=== PATIENT | female | born 1990 ===

== ENCOUNTER 2018-07-12 20:47 | Inpatient (IN) | payer BC ==
[2018-07-12 21:09] VITALS: BMI 33.3
[2018-07-12] MEDS ORDERED: Lactated Ringer's 1,000 ML IV ONE (21:33)
[2018-07-12] MEDS ORDERED: Lactated Ringer's 1,000 ML IV SCH (21:45)
--- NOTE | 2018-07-12 21:51 | OBADHP ---
Datetime: 07/12/2018 21:32 Admit Comment, IP Provider: borderline blood pressure, intermittent borderline fluid, elective IOL w ith cervidil Pelvic Type - PN: Adequate Extremities - PN: Normal Abdomen - PN: Normal Back - PN: Normal Breast - PN: Not Done Lungs - PN: Normal Heart - PN: Normal Thyroid - PN: Not Done Neurologic - PN: Normal HEENT - PN: Normal General - PN: Normal FHR - Baseline A Provider: 140 Contraction Comments Provider: irregular Comments, ACOG Physical Exam: Abdomen: Gravid. Soft. Non tender in all quadrants. [place]; height 39 c m Gestation - Est Wks by US: 39w 4d Pool Provider: Negative IP Hx Assessment: The History has been Reviewed and is Current Vital Signs Provider: Reviewed; Within Normal Limits IP Chief Complaint: Signs/Symptoms Gestational HTN NICHD Variability Prov Fetus A: Moderate 6-25bpm NICHD Accel Fetus A IP Provider: 15X15 FHR Category Provider Fetus A: Category I NICHD Decel Fetus A IP Provider: None Dilatation, Provider: 0 Effacement, Provider: 30 Station, Provider: -2 Genitourinary Exam: Normal DTRs - PN: Normal EGA AdmitDate IP: 39.4 IP Adm Impression: Term, intrauterine ; No Active Labor IP Admit Plan: Admit to unit; Initiate labor induction protocol
[2018-07-12 21:55] LABS: BASO # 0.1 K/uL (0.0-0.2); BASO % 0.8 % (0.0-2.0); EOS # 0.1 K/uL (0.0-0.7); HEMOGLOBIN 11.3 g/dL (11.0-16.0); LYMPH # 1.8 K/uL (1.0-4.3); LYMPH % 17.8 % (20.0-40.0); MEAN CELL VOLUME 81.2 fL (81.0-99.0); MEAN CORPUSCULAR HEMOGLOBIN 25.1 pg (27.0-31.0); MEAN CORPUSCULAR HGB CONC 30.9 g/dL (33.0-37.0); MEAN PLATELET VOLUME 8.8 fL (7.2-11.7); MONO # 0.7 K/uL (0.0-0.8); NEUT # 7.4 K/uL (1.8-7.0); NEUT % 73.4 % (50.0-75.0); RBC 4.52 Mil/uL (3.80-5.20); RED CELL DISTRIBUTION WIDTH 16.2 % (11.5-14.5); WHITE BLOOD COUNT 10.1 K/uL (4.8-10.8)
[2018-07-12 22:11] LABS: SQUAMOUS EPITHIAL 3 /hpf (0-5); URINE BACTERIA FEW (<OCC); URINE BILIRUBIN NEGATIVE (NEGATIVE); URINE BLOOD NEGATIVE (NEGATIVE); URINE CALCIUM OXALATE CRYSTALS RARE /hpf (<OCC); URINE CLARITY Hazy (Clear); URINE COLOR Yellow (YELLOW); URINE GLUCOSE (UA) NORMAL (Normal); URINE LEUKOCYTE ESTERASE NEG Leu/uL (Negative); URINE PROTEIN 1+ mg/dL (NEGATIVE)
[2018-07-12 22:12] LABS: ALB/GLOB RATIO 1.2 (1.0-2.1); ALBUMIN 4.3 g/dL (3.5-5.0); ALT/SGPT 12 U/L (9-52); AST/SGOT 34 U/L (14-36); BLOOD UREA NITROGEN 9 mg/dL (7-17); CALCIUM 9.7 mg/dl (8.6-10.4); GFR NON-AFRICAN AMERICAN > 60
--- NOTE | 2018-07-12 22:16 | OBHP ---
Datetime: 07/12/2018 21:32 IP Adm Impression: Term, intrauterine ; No Active Labor IP Admit Plan: Admit to unit; Initiate labor induction protocol Admit Comment, IP Provider: This is a private patient of Dr. Schroeder 28 y.o. , LMP 10/14/17, revised GILMA 07/15/18, EGA 39w 4d by sono 12/29/17 at 12w 4d for IOL secon sherin to gestational HTN. Denies headaches, spots, blurred vision, epigastric or RUQ pain. (+) AFM; de nies LOF, VB, Ctx. care: Dr. Schroeder; denies any issues to date except elevated BP readings P Ob: Primip P THERAPY DIRECTOR: 10 x monthly x 5. (+) HPV with abnormal Pap, 2018 - S/P colposcopy with negative results. (+) chlamydia, 2018. Denies myoma or ovarian cysts PMH: denies PSH: denies NKDA Meds: PNV Soc Hx: denies tobacco, illicit drug or EtOH use. Lives with FOB; together x 1 year. Employed - [employer]. Fam Hx; Mother laive 58 - thyroid disorder. Father alive 68 - DM. No known fam h/o cancer Assessment: 28 y.o. P0, 39w 4d, gestaional HTN for IOL D/W/ patient - cervical ripening; possible pitocin; as well as pain medication options, ubaldo epidural. Category 1 tracing. Patient is clinically stable. Plan: 1) Admit 2) NPO 3) IVFs 4) Admission and pre-eclamptic labs 5) Continuous EFM 6) Cervidil 7) Anticipate vaginal delivery - as per Dr. Schroeder Addendum: 2208 hours - cervidil placed in posterior vaginal vault at 2200 hours Pelvic Type - PN: Adequate Extremities - PN: Normal Abdomen - PN: Normal Back - PN: Normal Breast - PN: Not Done Lungs - PN: Normal Heart - PN: Normal Thyroid - PN: Not Done Neurologic - PN: Normal HEENT - PN: Normal General - PN: Normal Weight - Estimated: 7 1/2 lb Presentation-Admit: Vertex FHR - Baseline A Provider: 140 Contraction Comments Provider: irregular Comments, ACOG Physical Exam: Abdomen: Gravid. Soft. Non tender in all quadrants. Fundal height 39 c m All other systems reviewed and are negative Gestation - Est Wks by US: 39w 4d Pool Provider: Negative IP Hx Assessment: The History has been Reviewed and is Current EGA AdmitDate IP: 39.4 Vital Signs Provider: Reviewed; Within Normal Limits IP Indication for Induction: Gest. HTN/PreEclampsia/Eclampsia IP Chief Complaint: Signs/Symptoms Gestational HTN NICHD Variability Prov Fetus A: Moderate 6-25bpm NICHD Accel Fetus A IP Provider: 15X15 FHR Category Provider Fetus A: Category I NICHD Decel Fetus A IP Provider: None Dilatation, Provider: 1 Effacement, Provider: 40 Station, Provider: -3 Genitourinary Exam: Normal DTRs - PN: Normal
[2018-07-12 22:34] LABS: PROTHROMBIN TIME 10.7 SECONDS (9.7-12.2)
--- NOTE | 2018-07-13 05:04 | OBPN ---
Datetime: 07/13/2018 04:58 IP Procedures: Sterile Vag Exam IP Progress Plan: Continue present management; Anticipate Vaginal Delivery Membranes, Provider: Intact Contraction Comments Provider: irregular FHR - Baseline A Provider: 145 Gestation - Est Wks by US: 39w 5d Presentation-Admit: Vertex IP Progress Note Comment: Notified by R.N. - patient vomiting; reports increasing pain of Ctx Patietn reports pain scale 7/10 Cervical exam: as above. Cervidil left in situ Assessment: 28 y.o. P0, 39w 5d, IOL for gestational HTN;l cervidil #1 in situ - good response. Cat egory 1 tracing. Declines pain medication at this time. Patient is clnically stable. Pkan: 1) Continue present management 2) Anticipate vaginal delivery Vital Signs Provider: Reviewed; Within Normal Limits FHR Category Provider Fetus A: Category I NICHD Variability Prov Fetus A: Moderate 6-25bpm Dilatation, Provider: 2-3 Effacement, Provider: 80 Station, Provider: -2 NICHD Decel Fetus A IP Provider: None Datetime: 07/12/2018 21:32 Pool Provider: Negative Weight - Estimated: 7 1/2 lb NICHD Accel Fetus A IP Provider: 15X15
[2018-07-13] MEDS ORDERED: Bupivacaine HCl/FentaNYL Cit 100 ML EPI ONE (06:56)
[2018-07-13] MEDS ORDERED: Oxycodone/Acetaminophen 5/325 mg Tab PO PRN (15:00)
[2018-07-13] MEDS ORDERED: Benzocaine/Menthol 20%-0.5% Topical Spray (60 ml) TOP PRN (18:00)
[2018-07-14 08:22] LABS: BASO # 0.1 K/uL (0.0-0.2); BASO % 0.6 % (0.0-2.0); EOS % 0.1 % (0.0-4.0); HEMOGLOBIN 10.3 g/dL (11.0-16.0); LYMPH % 13.6 % (20.0-40.0); MEAN CELL VOLUME 80.6 fL (81.0-99.0); MEAN CORPUSCULAR HEMOGLOBIN 25.4 pg (27.0-31.0); MEAN CORPUSCULAR HGB CONC 31.5 g/dL (33.0-37.0); MEAN PLATELET VOLUME 8.7 fL (7.2-11.7); MONO # 0.6 K/uL (0.0-0.8); MONO % 4.2 % (0.0-10.0); NEUT # 11.7 K/uL (1.8-7.0); NEUT % 81.5 % (50.0-75.0); RBC 4.07 Mil/uL (3.80-5.20); RED CELL DISTRIBUTION WIDTH 16.5 % (11.5-14.5); WHITE BLOOD COUNT 14.4 K/uL (4.8-10.8)
--- NOTE | 2018-07-15 18:01 | OBDS ---
DELIVERY PERSONNEL Delivery Doctor: Harsh Schroeder MD Component Design Engineer: Kathie Cardona RN Anesthesiologist: Rachna Lewis MD MATERNAL INFORMATION Delivery Anesthesia: Epidural Medications in Delivery: pitocin 20 in 1000 mls of LR, cytotec 800mcg Estimated Blood Loss (ml): 400 Placenta Cultured: No Maternal Complications: None RN Comments: noneventful of 39.5 weeks IUP to a viable baby girl with apgars 9-9 Provider Comments: Maternal difficulty in pushing. Persistent tachycardia for 5 minuets, good variability, verbal consent for vacuum obtained. oulet vacuum, bladder emptied prior to application , position appropriate, no complicaitons. 2 pulls, 10 second each, with good response and minimal ef fort, no pop offs. No dystocia folloing head. body cord present. placenta spontaneous with traction . cytotec given postdelivery. 1st degree tear reapired with 2-0 chromic. LABOR SUMMARY EDC: 07/15/2018 00:00 No. Babies in Womb: 1 Attempted: No Labor Anesthesia: Epidural LABOR INFORMATION Reason for Induction: Gest. HTN/PreEclampsia/Eclampsia Reason for Induction Other: per Dr. Schroeder Onset of Labor: 07/13/2018 04:56 Complete Dilatation: 07/13/2018 10:08 Cervical Ripening Agents: Cervidil Group B Beta Strep: Negative Steroids Given: None Reason Steroids Not Administered: Not Applicable MEMBRANES Membranes Rupture Method: Artificial Rupture of Membranes: 07/13/2018 11:30 Length of Rupture (hrs): 2.18 Amniotic Fluid Color: Light Meconium Amniotic Fluid Amount: Small Amniotic Fluid Odor: Normal STAGES OF LABOR Stage 1 hrs: 5 Stage 1 min: 12 Stage 2 hrs: 3 Stage 2 min: 33 Stage 3 hrs: 0 Stage 3 min: 3 Total Time in Labor hrs: 8 Total Time in Labor min: 48 VAGINAL DELIVERY Episiotomy: None Laceration Extension: First Degree Laceration Type: Sulcus Laceration Repair: Yes Initial Vag Sponge Count: 10 Final Vag Sponge Count: 10 Initial Vag Sharps Count: 0 Final Vag Sharps Count: 3 Sponge Count Correct: Yes; Vaginal Sweep Performed Sharps Count Correct: Yes BABY A INFORMATION Delivery Date/Time: 07/13/2018 13:41 Method of Delivery: Vaginal Born in Route : No : Successful Forceps: N/A Vacuum Extraction: Successful Shoulder Dystocia : No ASSISTED DELIVERY BABY A Indication for Assisted Delivery: tachycardia Catheter Prior to Procedure: No Station Vacuum/Forcep Apply: outlet +3 Position Vacuum/Forcep Apply: Left Occipital Anterior Vacuum Number of Pulls: 2 Vacuum Number of PopOffs: 0 Vacuum Maximum Pressure Obtained: 50 Reduce Pressure btwn Ctx: Yes Vacuum Pcb Design Engineer: [employer] Total Time Vacuum Applied: 3 minutes SHOULDER DYSTOCIA BABY A Infant Delivery Date/Time: 07/13/2018 13:41 PRESENTATION/POSITION BABY A Presentation: Cephalic Cephalic Presentation: Vertex Vertex Position: Right Occipital Anterior Breech Presentation: N/A PLACENTA INFORMATION BABY A Placenta Delivery Time : 07/13/2018 13:44 Placenta Method of Delivery: Expressed Placenta Status: Delivered INFANT INFORMATION BABY A Gestational Age at Delivery: 39.5 Gestational Status: Term Infant Outcome : Liveborn Infant Condition : Stable Sex: Female IDENTIFICATION/MEDS BABY A ID Band Number: [id number] ID Band Location: Left Leg; Left Arm Sensor Applied: Yes Sensor Number: [id number] Sensor Location : Cord Clamp Vitamin K Given : Aquamephyton 1 mg IM Erythromycin Given: Given Both Eyes WEIGHT/LENGTH BABY A Birthweight (gms): 3385 Weight (lb): 7 Weight (oz): 7 Infant Length Inches: 20.00 Infant Length cms: 50.8 CORD INFORMATION BABY A No. Cord Vessels: 3 Nuchal Cord : N/A Nuchal Cord Other: body loose True Knot: n/a Cord pH Baby Arterial: n/a Cord pH Baby Venous: 7.36 Cord Blood Taken: Yes Banking/Donate Info: n/a Suction: Mouth; Nose ASSESSMENT BABY A Infant Complications: Meconium Physical Findings at Delivery: Caput Succedaneum; Molding of the Head Respirations: Appears Normal Air Traffic Control Supervisor/ALS Called : No Care By: mey prado Transferred To: [facility]
--- NOTE | 2018-07-15 18:01 | OBPPN ---
Datetime: 07/15/2018 17:58 PP Pain Prov: Within normal limits PP Nausea Prov: Denies PP Flatus Prov: Yes PP BM Prov: Yes PP Breasts Prov: Normal PP Heart Prov: Normal PP Lungs Prov: Normal PP Abdomen/Uterus Prov: Normal PP Lochia Prov: Normal PP Vulva/Perineum Prov: Normal PP CVA Tenderness Prov: Normal PP Extremities Prov: Normal PP Impression Prov: Normal progression PP Plan Prov: Discharge Vital Signs Provider PP: Reviewed
--- NOTE | 2018-07-15 18:01 | OBDCSUM ---
Datetime: 07/15/2018 17:59 Discharged to, Provider: Home Follow up at, Provider: Elda Grossman Instr Activity: Normal activity Disch Instr Diet: Regular Discharge Instructions, Provider: Routine instructions given Discharge Diagnosis, Provider: Term Delivered Discharge Time: 07/15/2018 17:59 Follow up in weeks, Provider: 1 week Disch Referrals: None Contraception discussed, Prov: Yes Disch Activity Restrictions: No exercising; No lifting; No driving; No sexual activity; Nothing in v agina - [place], tampons, douche Discharge Diagnosis Prov Other: borderline bp
[2018-07-16 01:00] VITALS: BP 124/77; PULSE 89; RESP 20; TEMP 99.3; O2SAT 100
== END 2018-07-15 20:10 | disposition home or self-care (01) | DRG 806 ==
LOC: C.EROB 20:47 → C.4D 21:30 → UNDOADMIN 21:38 → C.4D 21:38 → C.4M 07-13 16:58
PROVIDERS: ADMIT Obstetrics & Gynecology; ATTEND Obstetrics & Gynecology
PROC: 0HQ9XZZ Repair Perineum Skin, External Approach (ICD-10-PCS; principal; 2018-07-13)
PROC: 10E0XZZ Delivery of Products of Conception, External Approach (ICD-10-PCS; 2018-07-13)
DX: O70.0 First degree perineal laceration during delivery (principal); O16.3 Unspecified maternal hypertension, third trimester; O69.81X0 Labor and delivery complicated by cord around neck, without compression, not applicable or unspecified; Z3A.39 39 weeks gestation of pregnancy; O77.0 Labor and delivery complicated by meconium in amniotic fluid; O34.219 Maternal care for unspecified type scar from previous cesarean delivery; Z37.0 Single live birth